=== PATIENT | female | born 1955 | race American Indian/Alaskan Native ===

== ENCOUNTER 2017-03-05 06:09 | Inpatient (IN) | payer SELFPAY ==
[2017-03-05 07:24] LABS: Hematocrit 33.2 % (30.3-42.9); Hemoglobin 10.4 gm/dl (10.1-14.3); Mean Corpuscular HGB Conc 32 % (30-34); Mean Corpuscular Volume 75 fl (79-97); Platelet Count 478 K/mm3 (140-440); Red Blood Count 4.42 M/mm3 (3.65-5.03); Red Cell Distribution Width 14.2 % (13.2-15.2)
[2017-03-05 07:25] LABS: Mean Corpuscular Hemoglobin 24 pg (28-32); White Blood Count 21.3 K/mm3 (4.5-11.0)
[2017-03-05 07:44] LABS: Albumin 3.2 g/dL (3.9-5); Albumin/Globulin Ratio 0.8 %; BUN/Creatinine Ratio 18.33; Bilirubin,Total 0.4 mg/dL (0.1-1.2); Calcium 8.9 mg/dL (8.4-10.2); Chloride 96.2 mmol/L (98-107); Potassium 4.1 mmol/L (3.6-5.0); Total Protein 7.1 g/dL (6.3-8.2)
[2017-03-05] MEDS ORDERED: NACL ONE (07:50)
[2017-03-05] MEDS ORDERED: ZOFRAN ONE ×2 (08:00→10:50)
[2017-03-05] MEDS ORDERED: MORPHINE ONE (08:01)
[2017-03-05] MEDS ORDERED: MORPHINE IV ONE (08:03)
--- NOTE | 2017-03-05 08:10 | Emergency Department Report ---
HPI - General Chief Complaint: Abdominal Pain Time Seen by Provider: 03/05/17 07:32 - HPI HPI: This is a 62-year-old Afro-[place]ien female presents to the emergency department with complaint of abdominal pain and possible wound infection. The patient was at [facility] in the middle of January and was found to have a bowel obstruction. They went in to do surgery and also found her to have significant adhesions and some other complications and the patient had some level of a intestinal resection. The surgery was done sometime around the and the patient was discharged home yesterday with a drain in place and instructions to replace her abdominal packing. However the patient has been having increased abdominal pain even prior to discharge and is currently living in a motel with her daughter and grandchildren and does not appear capable of taking care of this wound. She has a open wound to the anterior abdomen and it has started to leak malodorous discharge. The patient also says that she has been feeling as if she had a fever. She otherwise has a history of hypertension. She has a previous surgical history of cholecystectomy and intestinal surgery 30 years ago. She does not currently have a primary care doctor. The patient has a 40- pack-year history of smoking and stopped about 3 weeks ago, when she went into the hospital. ED Past Medical Hx - Past Medical History Previous Medical History?: Yes Hx Hypertension: Yes - Surgical History Past Surgical History?: Yes Additional Surgical History: GB, abdominal sx x2 - Social History Smoking Status: Former Smoker Substance Use Type: None - Medications Home Medications: Home Medications Medication Instructions Recorded Confirmed Last Taken Type Ibuprofen/Diphenhydramine Cit [Eql 1 each PO QHS 03/05/17 03/05/17 Unknown History Ibuprofen Pm Caplet] ED Review of Systems ROS: Stated complaint: ABD PAIN Other details as noted in HPI Comment: All other systems reviewed and negative Constitutional: chills, fever Eyes: denies: eye pain, eye discharge, vision change ENT: denies: ear pain, throat pain Respiratory: cough. denies: shortness of breath, wheezing Cardiovascular: denies: chest pain, palpitations Gastrointestinal: abdominal pain, nausea. denies: vomiting Genitourinary: denies: urgency, dysuria, discharge Musculoskeletal: denies: back pain, joint swelling, arthralgia Skin: denies: rash, lesions Neurological: denies: headache, weakness, paresthesias Physical Exam - Physical Exam Vital Signs: Vital Signs 03/05/17 06:29 Temperature 97.4 F L Pulse Rate 74 Respiratory 18 Rate Blood Pressure 159/79 O2 Sat by Pulse 95 Oximetry Physical Exam: GENERAL: The patient is well-developed well-nourished. HEENT: Normocephalic. Atraumatic. Extraocular motions are intact. Patient has moist mucous membranes. Pupils equal reactive to light bilaterally. NECK: Supple. Trachea is midline. CHEST/LUNGS: Coarse breath sounds at the chest. A productive any cough heard during examination. There is no respiratory distress noted. HEART/CARDIOVASCULAR: Regular. There is no tachycardia. There is no gallop rub or murmur. ABDOMEN: Abdomen is soft. There is generalized tenderness to palpation of the abdomen. Patient has a midline incisional wound that starts just above the pelvis and goes to around the umbilicus. It is relatively deep into the subcutaneous tissue. There is a drain with some purulent bloody appearing secretions inside. There is some malodorous yellowish white discharge seen coming from the center of the wound. There is no surrounding erythema. There is no abdominal distention. SKIN: Patient has a midline abdominal incisional wound that starts just above the pelvis and goes to around the umbilicus. It is relatively deep into the subcutaneous tissue. There is a drain with some purulent bloody appearing secretions inside. There is some malodorous yellowish white discharge seen coming from the center of the wound. There is no surrounding erythema. Skin is warm and dry. NEURO: The patient is awake, alert, and oriented. The patient is cooperative. The patient has no focal neurologic deficits. The patient has normal speech. MUSCULOSKELETAL: There is no tenderness or deformity. There is no limitation range of motion. There is no evidence of acute injury. ED Course Vital Signs 03/05/17 06:29 Temperature 97.4 F L Pulse Rate 74 Respiratory 18 Rate Blood Pressure 159/79 O2 Sat by Pulse 95 Oximetry ED Medical Decision Making - Lab Data Result diagrams: 03/05/17 07:00 03/05/17 07:00 - Radiology Data Radiology results: report reviewed, image reviewed interpreted by me: Chest x-ray does not show any pleural effusion, pneumonia or any acute process. CT SCAN OF THE ABDOMEN AND PELVIS WITH CONTRAST: HISTORY: Increasing abdominal pain, abdominal surgery 7 days ago. TECHNIQUE: Helical CT in 1.25mm intervals following IV contrast. Sagittal and coronal reconstructions. FINDINGS: No relative comparison at this facility. The liver is normal size and contour. Minimal fatty infiltration is suspected. No suspicious liver mass. 1 cm cyst is noted in the superior right hepatic lobe. Cholecystectomy has been performed. No biliary dilatation is appreciated. The pancreas is unremarkable. The spleen is normal size. 3 cm splenic hemangiomas noted anteriorly. The kidneys are normal in size and position with no evidence of hydronephrosis or mass. A right ureteral stent is in place. 1.5 cm low density nodule in the right adrenal gland probably represents an adrenal adenoma. The left adrenal gland is normal. A surgical drain is noted along the anterior abdominal wall terminating in the anterior pelvis. There is no evidence for adjacent fluid collection. The bowel loops are fluid-filled but normal caliber. There is no convincing obstruction or pneumatosis. A postoperative ileus is suggested. The appendix is not confidently identified. There is nonspecific óscar edema in the mesentery which is probably related to recent surgery. There is no evidence of peritoneal air or fluid. There is no evidence of any abnormal masses or fluid collections within the pelvis. No adenopathy is identified. The bladder is normal. Small calcified uterine fibroid is noted in the uterine fundus. The adnexa are within normal limits. There is a small amount of gas in the anterior abdominal incision but no defined abscess. IMPRESSION: Recent abdominal surgery changes are noted. No acute inflammatory process or abscess is appreciated. A postoperative ileus is suspected. - Medical Decision Making 62-year-old female presents emergency Department with some abdominal pain, probable soft tissue infection from previous surgical incision for intestinal resection at another hospital. While the patient does not have a current fever she does present with a leukocytosis of almost 21,000. A CT of the abdomen and pelvis with IV contrast was done that did not show any obvious abscess or any other acute process. However there is visible pus coming out of the incision and the patient has significant discomfort despite multiple pain medications given. She will be admitted to hospital for IV antibiotics, pain control and further evaluation. She's been accepted for admission by the hospitalist, Dr. Hightower. - Differential Diagnosis colitis, diverticulitis, cellulitis, subcutaneous abscess Critical Care Time: No Critical care attestation.: If time is entered above; I have spent that time in minutes in the direct care of this critically ill patient, excluding procedure time. ED Disposition Clinical Impression: Postoperative ileus Post-operative complication Qualifiers: Surgical complication system/body Area: subcutaneous tissue Surgical complication type: unspecified Abdominal pain Qualifiers: Abdominal location: generalized Qualified Code(s): R10.84 - Generalized abdominal pain UTI (urinary tract infection) Qualifiers: Urinary tract infection type: acute cystitis Hematuria presence: with hematuria Qualified Code(s): N30.01 - Acute cystitis with hematuria Leukocytosis Qualifiers: Leukocytosis type: unspecified Qualified Code(s): D72.829 - Elevated white blood cell count, unspecified Hypertension Qualifiers: Hypertension type: essential hypertension Qualified Code(s): I10 - Essential ( primary) hypertension Incisional infection Qualifiers: Encounter type: initial encounter Qualified Code(s): T81.4XXA - Infection following a procedure, initial encounter Disposition: OP ADMITTED IP TO THIS HOSP Is pt being admited?: Yes Condition: Fair Time of Disposition: 11:35
[2017-03-05] MEDS ORDERED: ZOFRAN IV ONE ×2 (08:36→10:56)
[2017-03-05] MEDS ORDERED: VANCOMYCIN/NS 1 GM/250 ML 1 GM/250 ML BAG IV ONE (09:09)
[2017-03-05] MEDS ORDERED: ZOSYN/NS 4.5GM/100ML 4.5 GM/100 ML VIAL IV ONE (09:10)
[2017-03-05] MEDS ORDERED: DILAUDID IV ONE (09:33)
--- NOTE | 2017-03-05 09:42 | XRay Report ---
AP CHEST: HISTORY: Cough AP view of the chest demonstrates a normal mediastinal and cardiac contour with clear lungs and normal bony and soft tissue structures. IMPRESSION: Unremarkable AP chest.
[2017-03-05] MEDS ORDERED: DUONEB 0.5 MG-3 MG/3 ML SOLN IH ONE (09:45)
--- NOTE | 2017-03-05 09:47 | Cat Scan Report ---
CT SCAN OF THE ABDOMEN AND PELVIS WITH CONTRAST: HISTORY: Increasing abdominal pain, abdominal surgery 7 days ago. TECHNIQUE: Helical CT in 1.25mm intervals following IV contrast. Sagittal and coronal reconstructions. FINDINGS: No relative comparison at this facility. The liver is normal size and contour. Minimal fatty infiltration is suspected. No suspicious liver mass. 1 cm cyst is noted in the superior right hepatic lobe. Cholecystectomy has been performed. No biliary dilatation is appreciated. The pancreas is unremarkable. The spleen is normal size. 3 cm splenic hemangiomas noted anteriorly. The kidneys are normal in size and position with no evidence of hydronephrosis or mass. A right ureteral stent is in place. 1.5 cm low density nodule in the right adrenal gland probably represents an adrenal adenoma. The left adrenal gland is normal. A surgical drain is noted along the anterior abdominal wall terminating in the anterior pelvis. There is no evidence for adjacent fluid collection. The bowel loops are fluid-filled but normal caliber. There is no convincing obstruction or pneumatosis. A postoperative ileus is suggested. The appendix is not confidently identified. There is nonspecific óscar edema in the mesentery which is probably related to recent surgery. There is no evidence of peritoneal air or fluid. There is no evidence of any abnormal masses or fluid collections within the pelvis. No adenopathy is identified. The bladder is normal. Small calcified uterine fibroid is noted in the uterine fundus. The adnexa are within normal limits. There is a small amount of gas in the anterior abdominal incision but no defined abscess. IMPRESSION: Recent abdominal surgery changes are noted. No acute inflammatory process or abscess is appreciated. A postoperative ileus is suspected.
[2017-03-05 10:04] LABS: Bacteria,Urine 1+ /HPF (Negative); Bilirubin,Urine NEG (Negative); Blood,Urine LG (Negative); Ketones,Urine TR mg/dL (Negative); Leukocyte Esterase,Urine MOD (Negative); Nitrite,Urine NEG (Negative); Urobilinogen,Urine < 2.0 mg/dL (<2.0)
[2017-03-05 11:21] LABS: Basophils % (Manual) 0 % (0.0-1.8); Blastocytes % (Manual) 0 %; Eosinophils % (Manual) 0.5 % (0.0-4.3); Total Cells Counted Percent 6.5
[2017-03-05 11:22] LABS: Anisocytosis 1+; Diff Status Complete; Hypochromasia 1+; Platelet Estimate Consistent w Auto
--- NOTE | 2017-03-05 14:37 | Event Note ---
Date: 03/05/17 See H/p in reports Abdominal wall dehiscence Hx of intestinal obstruction- S/p surgery HTN
[2017-03-05] MEDS ORDERED: TYLENOL PO PRN (15:00)
[2017-03-05] MEDS: D5NS 1,000 ML IV SCH (15:00)
[2017-03-05] MEDS ORDERED: MILK OF MAGNESIA PO PRN (15:00)
[2017-03-05] MEDS ORDERED: VANCOMYCIN PHARMACY TO DOSE IV SCH (15:00)
[2017-03-05] MEDS ORDERED: DULCOLAX PR PRN (15:00)
[2017-03-05] MEDS ORDERED: DILAUDID IV PRN (15:00)
[2017-03-05] MEDS ORDERED: ZOFRAN IV PRN (15:00)
[2017-03-05] MEDS: HEPARIN SUB-Q SCH ×2 (15:01→22:38)
[2017-03-05] MEDS ORDERED: MORPHINE IV PRN (16:25)
[2017-03-05] MEDS: ZOSYN/NS 4.5GM/100ML 4.5 GM/100 ML VIAL IV SCH ×2 (17:38→22:37)
[2017-03-05] MEDS: PEPCID IV SCH ×2 (17:51→22:38)
--- NOTE | 2017-03-05 18:48 | History and Physical Report ---
History of Present Illness Date of admission: 03/05/17 11:36 Chief complaint: abd pain-recently post op Medications and Allergies Allergies Allergy/AdvReac Type Severity Reaction Status Date / Time No Known Allergies Allergy Unverified 03/05/17 06:52 Home Medications Medication Instructions Recorded Confirmed Last Taken Type Ibuprofen/Diphenhydramine Cit [Eql 1 each PO QHS 03/05/17 03/05/17 Unknown History Ibuprofen Pm Caplet] traMADol [Ultram] 50 mg PO Q8H PRN #10 tablet 03/07/17 Unknown Rx Active Meds: Active Medications Acetaminophen (Tylenol) 650 mg PO Q4H PRN PRN Reason: Pain MILD(1-3)/Fever >100.5/[facility] Bisacodyl (Dulcolax) [address] QDAY PRN PRN Reason: Constipation unrelieved by [facility] [place] Diphenoxylate HCl/Atropine (Lomotil) 1 tab PO Q6H PRN PRN Reason: Diarrhea Famotidine (Pepcid) 20 mg IV BID COUNT INCLUDES THE [facility] Last Admin: 03/05/17 17:51 Dose: 20 mg Heparin Sodium (Porcine) (Heparin) 5,000 unit SUB-Q Q8HR COUNT INCLUDES THE [facility] Last Admin: 03/05/17 15:01 Dose: 5,000 unit Dextrose/Sodium Chloride (D5ns) 1,000 mls @ 75 mls/hr IV DIRECT COUNT INCLUDES THE [facility] Last Admin: 03/05/17 15:00 Dose: 75 mls/hr Piperacillin Sod/Tazobactam Sod (Zosyn/Ns 4.5gm/100ml) 4.5 gm in 100 mls @ 200 mls/hr IV Q8HR COUNT INCLUDES THE [facility] PRN Reason: Protocol Last Admin: 03/05/17 17:38 Dose: 200 mls/hr Vancomycin HCl (Vancomycin/Ns 1 Gm/250 Ml) 1 gm in 250 mls @ 166.667 mls/hr IV Q24H COUNT INCLUDES THE [facility] Magnesium Hydroxide (Milk Of Magnesia) 30 ml PO Q4H PRN PRN Reason: Constipation Morphine Sulfate (Morphine) 4 mg IV Q4H PRN PRN Reason: Pain , Severe (7-10) Last Admin: 03/05/17 17:32 Dose: 4 mg Ondansetron HCl (Zofran) 4 mg IV Q3H PRN PRN Reason: N/V unrelieved by Reglan Vancomycin HCl (Vancomycin Pharmacy To Dose) 1 each IV PKCONSULT DAREK PRN Reason: Protocol Exam Vital Signs Temp Pulse Resp BP Pulse Ox 97.4 F L 74 18 159/79 95 03/05/17 06:29 03/05/17 06:29 03/05/17 06:29 03/05/17 06:29 03/05/17 06:29 Results - Labs 03/07/17 07:04 03/07/17 07:04
--- NOTE | 2017-03-05 19:00 | Consultation ---
History of Present Illness Consult date: 03/05/17 Reason for consult: abdominal pain Chief complaint: abd pain - History of present illness History of present illness: 62 year old female 8 days s/p expl lap with small bowel resection, incidental right ureteral injury(recognized and repaired), uneventful recovery, wound packed open with retention sutures, TAJ drain in pelvis near ureteral repair, Pt had CT scan of abd pelvis prior to discharge which showed no leak or abcess. Pt sent home with wound being packed by family, presented to ER for evaluation of abd pain. I spoke with patient's surgeon Enrique Marina MD at [facility].WBC at 20k, afebrile, hemodyn stable, CT here with iv contrast , no oral contrast, no abcess, normal post surgical changes. Wound appears clean , fascia intact. Past History Past Medical History: hypertension Past Surgical History: cholecystectomy, bowel surgery (prev small bowel resection 30 years ago) Social history: lives with family, smoking (quit smoking? three weeks ago, heavy smoker.) Medications and Allergies Allergies Allergy/AdvReac Type Severity Reaction Status Date / Time No Known Allergies Allergy Unverified 03/05/17 06:52 Home Medications Medication Instructions Recorded Confirmed Last Taken Type Ibuprofen/Diphenhydramine Cit [Eql 1 each PO QHS 03/05/17 03/05/17 Unknown History Ibuprofen Pm Caplet] Active Meds: Active Medications Acetaminophen (Tylenol) 650 mg PO Q4H PRN PRN Reason: Pain MILD(1-3)/Fever >100.5/[place] Bisacodyl (Dulcolax) 10 mg ID QDAY PRN PRN Reason: Constipation unrelieved by MOM Diphenoxylate HCl/Atropine (Lomotil) 1 tab PO Q6H PRN PRN Reason: Diarrhea Famotidine (Pepcid) 20 mg IV BID [facility] Last Admin: 03/05/17 17:51 Dose: 20 mg Heparin Sodium (Porcine) (Heparin) 5,000 unit SUB-Q Q8HR DAREK Last Admin: 03/05/17 15:01 Dose: 5,000 unit Dextrose/Sodium Chloride (D5ns) 1,000 mls @ 75 mls/hr IV DIRECT DAREK Last Admin: 03/05/17 15:00 Dose: 75 mls/hr Piperacillin Sod/Tazobactam Sod (Zosyn/Ns 4.5gm/100ml) 4.5 gm in 100 mls @ 200 mls/hr IV Q8HR DAREK PRN Reason: Protocol Last Admin: 03/05/17 17:38 Dose: 200 mls/hr Vancomycin HCl (Vancomycin/Ns 1 Gm/250 Ml) 1 gm in 250 mls @ 166.667 mls/hr IV Q24H [facility] Magnesium Hydroxide (Milk Of Magnesia) 30 ml PO Q4H PRN PRN Reason: Constipation Morphine Sulfate (Morphine) 4 mg IV Q4H PRN PRN Reason: Pain , Severe (7-10) Last Admin: 03/05/17 17:32 Dose: 4 mg Ondansetron HCl (Zofran) 4 mg IV Q3H PRN PRN Reason: N/V unrelieved by [facility] Vancomycin HCl (Vancomycin Pharmacy To Dose) 1 each IV PKCONSULT DAREK PRN Reason: Protocol Review of Systems - Constitutional other (abd pain) Exam Vital Signs Temp Pulse Resp BP Pulse Ox 97.4 F L 74 18 159/79 95 03/05/17 06:29 03/05/17 06:29 03/05/17 06:29 03/05/17 06:29 03/05/17 06:29 - General physical appearance Positive: no distress - Eyes Positive: PERRL, normal occular movement - ENT Positive: normal pinna, normal nares, normal mucosa, no hearing loss, no congestion - Neck Positive: no masses, no bruits, trachea midline, no venous distension - Respiratory Positive: normal expansion, normal respiratory effort, clear to auscultation - Cardiovascular Rhythm: regular Heart Sounds: Present: S1 & S2. Absent: rub, click - Extremities Extremities: no ischemia Peripheral Pulses: within normal limits - Breasts Breasts: normal - Abdomen Abdomen: Present: soft, bowel sounds normal (open wound, retentions intact,TAJ in place with minimal serous drainage) Hernia: none - Neurologic Neurologic: alert and oriented to time, place and person, motor strength and sensation are grossly intact - Psychiatric Psychiatric: appropriate mood/affect, intact judgment & insight Results - Labs 03/05/17 07:00 03/05/17 07:00 Assessment and Plan Recent surgery, incisional pain, somewhat complicated case Increased WBC post surgical? no evidence of wound infection or abcess Adv diet as tolerated, oral pain meds, instruct on wound care Pt had follow up appt this week with Dr. Marina-I spoke with him by phone, he even called the patient just prior to me seeing patient!
[2017-03-05] MEDS: PERCOCET 5/325 PO PRN (20:47)
[2017-03-06] MEDS: MORPHINE IV PRN ×3 (01:56→11:58)
--- NOTE | 2017-03-06 03:23 | History and Physical Report ---
CHIEF COMPLAINT: Open abdominal wound with infection. HISTORY OF PRESENT ILLNESS: A 62-year-old female, status post exploratory laparoscopic repair with small bowel resection, incidental right ureteral injury, which was recognized and repaired, uneventful recovery, wound packed with retention sutures. TAJ drain and pelvis near ureteral repair. The patient had a CAT scan of the abdomen and pelvis. Prior to discharge, it showed no leak or abscess. The patient sent home with wound being packed by family, now presents to the ER for evaluation of abdominal pain. The patient is afebrile. Wound appears clean and fascia intact. No fever, no chills. No shortness of breath. PAST MEDICAL HISTORY: Significant for hypertension. PAST SURGICAL HISTORY: Significant for cholecystectomy, bowel surgery, previous small bowel resection 30 years ago. SOCIAL HISTORY: Lives with ____ family, quit smoking about 3 weeks ago, heavy smoker. ALLERGIES: None. CURRENT MEDICATIONS: Ibuprofen with diphenhydramine. REVIEW OF SYSTEMS: Significant for abdominal pain and open abdominal wound secondary to surgery for small bowel resection secondary to obstruction. CONSTITUTIONAL: No weight loss, no weight gain, no fever, no chills. HEENT: No sore throat, no postnasal drip. CARDIOVASCULAR AND RESPIRATORY SYSTEM: No shortness of breath, no chest pain, no palpitations, no wheezing. GASTROINTESTINAL: As mentioned, abdominal wound, surgical wound opened at 2 sites proximally and distally. GENITOURINARY: No dysuria. Has a TAJ drain in the pelvis near ureteral repair. MUSCULOSKELETAL: No joint pains, no muscle pains. CENTRAL NERVOUS SYSTEM: No syncope, no seizures. SKIN: No rashes. PSYCHIATRIC: No depression, no anxiety. HEMATOLOGIC/LYMPHATIC: No lymphedema. No easy bruising. A 14-point review of systems was done. PHYSICAL EXAMINATION: GENERAL: Elderly female, cooperative during examination. VITAL SIGNS: Temperature is 97.4, pulse is 74, respirations are 18. HEENT: Unremarkable. Pupils equal and reactive. NECK: Supple, no lymphadenopathy, no thyromegaly. LUNGS: Clear to auscultation and percussion. Good air entry. CARDIOVASCULAR SYSTEM: S1, S2 heard. No gallop, no murmur, no rub. Apical impulse in left fifth intercostal space and midclavicular line. ABDOMEN: Open wound with retention sutures intact. TAJ in place with minimal serous drainage. Wound appears clean. No pus, no drainage. Bowel sounds are normal. No tenderness. CENTRAL NERVOUS SYSTEM: Alert and oriented x 4, nonfocal exam. PSYCHIATRIC: Appropriate mood and intact judgment. SKIN: As mentioned, 2 open wounds. One in the upper abdomen and one in the lower abdomen. Wounds appear clean. LABORATORY DATA: Significant for white count of 21,300; H and H is 10.4 and 33.2; BUN and creatinine is 22 and 1.2. ASSESSMENT AND PLAN: 1. Abdominal wounds secondary to surgery. Incisional wounds. No evidence of wound infection or abscess. We will start empiric antibiotics. Increased WBC secondary to post-surgery. We will observe for 24-48 hours and follow up possible discharge. Dr. Marina wanted to see her today, but the patient did not go there because of postoperative complications. The patient was counseled about the surgical course and the options are available to her. The patient has to follow up with Dr. Marina. IV Zosyn and IV vancomycin started. 2. Hypertension, under control. 3. Chronic pain. Initially was on Dilaudid, but as per Surgery, the patient changed to morphine 2 mg q. 4 hours p.r.n. for pain. DIET: Clear liquids for now. Advance diet tomorrow. Discussed with Dr. Schroeder extensively. The patient to be admitted for 24-48 hours. There are signs of active infection. The wound healed by secondary intention and it will take 6-8 weeks. The patient to follow with her surgeon on a regular basis. The patient counseled. The patient is agreeable. We will discuss with the hospitalist team tomorrow. JOB# [id number] CALE/SAMANTHA
[2017-03-06] MEDS: ZOSYN/NS 4.5GM/100ML 4.5 GM/100 ML VIAL IV SCH ×3 (06:06→22:00)
[2017-03-06] MEDS: HEPARIN SUB-Q SCH ×3 (06:07→22:00)
[2017-03-06 06:36] LABS: Basophils % (Auto) 0.8 % (0.0-1.8); Eosinophils % (Auto) 0.6 % (0.0-4.3); Hematocrit 27.4 % (30.3-42.9); Hemoglobin 8.6 gm/dl (10.1-14.3); Mean Corpuscular HGB Conc 31 % (30-34); Mean Corpuscular Volume 75 fl (79-97); Platelet Count 513 K/mm3 (140-440); Red Blood Count 3.63 M/mm3 (3.65-5.03); Red Cell Distribution Width 14.3 % (13.2-15.2); White Blood Count 17.9 K/mm3 (4.5-11.0)
[2017-03-06 06:39] LABS: Mean Corpuscular Hemoglobin 24 pg (28-32)
[2017-03-06 06:52] LABS: Alanine Aminotransferase 14 units/L (7-56); Albumin 2.6 g/dL (3.9-5); Albumin/Globulin Ratio 0.8 %; Alkaline Phosphatase 150 units/L (35-129); Anion Gap 20 mmol/L; BUN/Creatinine Ratio 12.72; Blood Urea Nitrogen 14 mg/dL (7-17); Calcium 8.1 mg/dL (8.4-10.2); Carbon Dioxide 19 mmol/L (22-30); Chloride 103.7 mmol/L (98-107); Glucose 124 mg/dL (65-100); Potassium 3.7 mmol/L (3.6-5.0); Sodium 139 mmol/L (137-145); Total Protein 5.7 g/dL (6.3-8.2)
--- NOTE | 2017-03-06 07:56 | Progress Note ---
Assessment and Plan Assessment and plan: Patient is a 62 year old female with hx of Exp Lap with small bowel resection and incidental right ureter injury which was recognized and repaired with uneventful recovery with no noted leak or abscess 8 days ago, she has TAJ in the plevis near the reapir and wound packing with retention sutures. She presented with abdominal pain and in the ER noted to have Leukocytosis of 20,000 With no associated Fever, and on CT abdomen with IV constrast and not oral contrast did not demonstrate any abscess. * Abdominal pain * SIRS w/Leukocytosis- secondary to recent surgical intervention * s/p Exp Lap with small bowel resection and Repair of right ureter injury * HTN * CHRONIC PAIN * Ileus * Anemia- Likely of chronic disease, PLAN * Leukocytosis improving, likely post op, no evidence of wound infection or abcess. patient remains afebrile, continue to monitor * precipitous drop in hgb, likely due to hemodliuation, will monitor * Culture reviewed and no growth * Advance diet as tolerated * continue pain control and abx, will review med rec * Surgical input noted * Discharge IN 24 HRS If remains stable * Wound care consult while in house * Follow up WITH DR. Marina NEXT WEEK at [facility]. History Interval history: Patient seen and examined, in no acute distress. still with abdominal pain, rates it a 6/10 in intensity. No other nursing report of adverse event EXCEPT DIARRHEA. PATIENT STATES SHE RECEIVED ENEMA on discharge from hospitalization Hospitalist Physical - Physical exam Narrative exam: VITAL SIGNS: Reviewed. GENERAL: The patient appeared well nourished and normally developed, obese. Vital signs as documented. HEAD: No signs of head trauma. EYES: Pupils are equal. Extraocular motions intact. EARS: Hearing grossly intact. MOUTH: Oropharynx is normal. NECK: No adenopathy, no JVD. CHEST: Chest with clear breath sounds bilaterally. No wheezes, rales, or rhonchi. CARDIAC: Regular rate and rhythm. S1 and S2, without murmurs, gallops, or rubs. VASCULAR: No Edema. Peripheral pulses normal and equal in all extremities. ABDOMEN: Soft, tender,. TAJ drain in place, surgical packing in place. No sign of distention. No rebound or guarding, and no masses palpated. Bowel Sounds normal. MUSCULOSKELETAL: Good range of motion of all major joints. Extremities without clubbing, cyanosis or edema. NEUROLOGIC EXAM: Alert and oriented x 3. No focal sensory or strength deficits. Speech normal. Follows commands. PSYCHIATRIC: Mood normal. SKIN: Abdominal dressing in place. - Constitutional Vitals: Temp Pulse Resp BP Pulse Ox 98.4 F 106 H 18 115/56 95 03/06/17 00:00 03/06/17 00:00 03/06/17 02:26 03/06/17 00:00 03/06/17 00:00 Results - Labs CBC & Chem 7: 03/06/17 06:04 03/06/17 06:04 Labs: Laboratory Last Values WBC 17.9 K/mm3 (4.5-11.0) H 03/06/17 06:04 RBC 3.63 M/mm3 (3.65-5.03) L 03/06/17 06:04 Hgb 8.6 gm/dl (10.1-14.3) L 03/06/17 06:04 Hct 27.4 % (30.3-42.9) L 03/06/17 06:04 MCV 75 fl (79-97) L 03/06/17 06:04 MCH 24 pg (28-32) L 03/06/17 06:04 MCHC 31 % (30-34) 03/06/17 06:04 RDW 14.3 % (13.2-15.2) 03/06/17 06:04 Plt Count 513 K/mm3 (140-440) H 03/06/17 06:04 Lymph % (Auto) 8.0 % (13.4-35.0) L 03/06/17 06:04 Long % (Auto) 10.0 % (0.0-7.3) H 03/06/17 06:04 Eos % (Auto) 0.6 % (0.0-4.3) 03/06/17 06:04 Baso % (Auto) 0.8 % (0.0-1.8) 03/06/17 06:04 Lymph # 1.4 K/mm3 (1.2-5.4) 03/06/17 06:04 Long # 1.8 K/mm3 (0.0-0.8) H 03/06/17 06:04 Eos # 0.1 K/mm3 (0.0-0.4) 03/06/17 06:04 Baso # 0.1 K/mm3 (0.0-0.1) 03/06/17 06:04 Add Manual Diff Complete 03/05/17 07:00 Total Counted 200 03/05/17 07:00 Seg Neutrophils % 80.6 % (40.0-70.0) H 03/06/17 06:04 Seg Neuts % (Manual) 87.5 % (40.0-70.0) H 03/05/17 07:00 Band Neutrophils % 0 % 03/05/17 07:00 Lymphocytes % (Manual) 6.0 % (13.4-35.0) L 03/05/17 07:00 Reactive Lymphs % (Man) 0 % 03/05/17 07:00 Monocytes % (Manual) 6.0 % (0.0-7.3) 03/05/17 07:00 Eosinophils % (Manual) 0.5 % (0.0-4.3) 03/05/17 07:00 Basophils % (Manual) 0 % (0.0-1.8) 03/05/17 07:00 Metamyelocytes % 0 % 03/05/17 07:00 Myelocytes % 0 % 03/05/17 07:00 Promyelocytes % 0 % 03/05/17 07:00 Blast Cells % 0 % 03/05/17 07:00 Nucleated RBC % Not Reportable 03/05/17 07:00 Seg Neutrophils # 14.4 K/mm3 (1.8-7.7) H 03/06/17 06:04 Seg Neutrophils # Man 18.6 K/mm3 (1.8-7.7) H 03/05/17 07:00 Band Neutrophils # 0.0 K/mm3 03/05/17 07:00 Lymphocytes # (Manual) 1.3 K/mm3 (1.2-5.4) 03/05/17 07:00 Abs React Lymphs (Man) 0.0 K/mm3 03/05/17 07:00 Monocytes # (Manual) 1.3 K/mm3 (0.0-0.8) H 03/05/17 07:00 Eosinophils # (Manual) 0.1 K/mm3 (0.0-0.4) 03/05/17 07:00 Basophils # (Manual) 0.0 K/mm3 (0.0-0.1) 03/05/17 07:00 Metamyelocytes # 0.0 K/mm3 03/05/17 07:00 Myelocytes # 0.0 K/mm3 03/05/17 07:00 Promyelocytes # 0.0 K/mm3 03/05/17 07:00 Blast Cells # 0.0 K/mm3 03/05/17 07:00 WBC Morphology Not Reportable 03/05/17 07:00 Hypersegmented Neuts Not Reportable 03/05/17 07:00 Hyposegmented Neuts Not Reportable 03/05/17 07:00 Hypogranular Neuts Not Reportable 03/05/17 07:00 Smudge Cells Not Reportable 03/05/17 07:00 Toxic Granulation Not Reportable 03/05/17 07:00 Toxic Vacuolation Not Reportable 03/05/17 07:00 Dohle Bodies Not Reportable 03/05/17 07:00 Pelger-Huet Anomaly Not Reportable 03/05/17 07:00 Wilmer Rods Not Reportable 03/05/17 07:00 Platelet Estimate Consistent w auto 03/05/17 07:00 Clumped Platelets Not Reportable 03/05/17 07:00 Plt Clumps, EDTA Not Reportable 03/05/17 07:00 Large Platelets Not Reportable 03/05/17 07:00 Giant Platelets Not Reportable 03/05/17 07:00 Platelet Satelliting Not Reportable 03/05/17 07:00 Plt Morphology Comment Not Reportable 03/05/17 07:00 RBC Morphology Not Reportable 03/05/17 07:00 Dimorphic RBCs Not Reportable 03/05/17 07:00 Polychromasia Not Reportable 03/05/17 07:00 Hypochromasia 1+ 03/05/17 07:00 Poikilocytosis Not Reportable 03/05/17 07:00 Anisocytosis 1+ 03/05/17 07:00 Microcytosis Not Reportable 03/05/17 07:00 Macrocytosis Not Reportable 03/05/17 07:00 Spherocytes Not Reportable 03/05/17 07:00 Pappenheimer Bodies Not Reportable 03/05/17 07:00 Sickle Cells Not Reportable 03/05/17 07:00 Target Cells Not Reportable 03/05/17 07:00 Tear Drop Cells Not Reportable 03/05/17 07:00 Ovalocytes Not Reportable 03/05/17 07:00 Helmet Cells Not Reportable 03/05/17 07:00 [place] Bodies Not Reportable 03/05/17 07:00 [place] Rings Not Reportable 03/05/17 07:00 [place] Cells Not Reportable 03/05/17 07:00 Bite Cells Not Reportable 03/05/17 07:00 Crenated Cell Not Reportable 03/05/17 07:00 Elliptocytes Not Reportable 03/05/17 07:00 Acanthocytes (Spur) Not Reportable 03/05/17 07:00 Rouleaux Not Reportable 03/05/17 07:00 Hemoglobin C Crystals Not Reportable 03/05/17 07:00 Schistocytes Not Reportable 03/05/17 07:00 Malaria parasites Not Reportable 03/05/17 07:00 Issac Bodies Not Reportable 03/05/17 07:00 Hem Pathologist Commnt No 03/05/17 07:00 Sodium 139 mmol/L (137-145) 03/06/17 06:04 Potassium 3.7 mmol/L (3.6-5.0) 03/06/17 06:04 Chloride 103.7 mmol/L (98-107) 03/06/17 06:04 Carbon Dioxide 19 mmol/L (22-30) L 03/06/17 06:04 Anion Gap 20 mmol/L 03/06/17 06:04 BUN 14 mg/dL (7-17) 03/06/17 06:04 Creatinine 1.1 mg/dL (0.7-1.2) 03/06/17 06:04 Estimated GFR > 60 ml/min 03/06/17 06:04 BUN/Creatinine Ratio 12.72 % 03/06/17 06:04 Glucose 124 mg/dL (65-100) H 03/06/17 06:04 Lactic Acid 1.00 mmol/L (0.7-2.0) 03/05/17 09:17 Calcium 8.1 mg/dL (8.4-10.2) L 03/06/17 06:04 Total Bilirubin 0.30 mg/dL (0.1-1.2) 03/06/17 06:04 AST 19 units/L (5-40) 03/06/17 06:04 ALT 14 units/L (7-56) 03/06/17 06:04 Alkaline Phosphatase 150 units/L (35-129) H 03/06/17 06:04 Total Protein 5.7 g/dL (6.3-8.2) L 03/06/17 06:04 Albumin 2.6 g/dL (3.9-5) L 03/06/17 06:04 Albumin/Globulin Ratio 0.8 % 03/06/17 06:04 Lipase 86 units/L (13-60) H 03/05/17 07:00 Urine Color Yellow (Yellow) 03/05/17 09:41 Urine Turbidity Cloudy (Clear) 03/05/17 09:41 Urine pH 5.0 (5.0-7.0) 03/05/17 09:41 Ur Specific [place] 1.031 (1.003-1.030) H 03/05/17 09:41 Urine Protein 100 mg/dl mg/dL (Negative) 03/05/17 09:41 Urine Glucose (UA) Neg mg/dL (Negative) 03/05/17 09:41 Urine Ketones Tr mg/dL (Negative) 03/05/17 09:41 Urine Blood Lg (Negative) 03/05/17 09:41 Urine Nitrite Neg (Negative) 03/05/17 09:41 Urine Bilirubin Neg (Negative) 03/05/17 09:41 Urine Urobilinogen < 2.0 mg/dL (<2.0) 03/05/17 09:41 Ur Leukocyte Esterase Mod (Negative) 03/05/17 09:41 Urine WBC (Auto) 61.0 /HPF (0.0-6.0) H 03/05/17 09:41 Urine RBC (Auto) 97.0 /HPF (0.0-6.0) 03/05/17 09:41 Urine Bacteria (Auto) 1+ /HPF (Negative) 03/05/17 09:41 Urine Yeast (Budding) 1+ /HPF 03/05/17 09:41
[2017-03-06] MEDS: D5NS 1,000 ML IV SCH (08:26)
[2017-03-06] MEDS: LOMOTIL PO PRN (09:14)
[2017-03-06] MEDS: VANCOMYCIN/NS 1 GM/250 ML 1 GM/250 ML BAG IV SCH (09:14)
[2017-03-06] MEDS: PEPCID IV SCH ×2 (09:14→22:00)
[2017-03-06] MEDS: ATIVAN IV PRN ×2 (10:28→18:24)
--- NOTE | 2017-03-06 11:51 | Event Note ---
Date: 03/06/17 VSS Afebrile, wound clean, no abcess, WBC trending down, patient is tolerating regular diet, had BM this am in bed, I would recc d/cing iv narcotics, use po pain meds, resume Cipro (patient allready has meds) and discharge home and follow up this week with Dr. Enrique Marina at [facility], she missed her appt yesterday, I do not think patient is bleeding, decreased H and H is dilutional or lab error.
[2017-03-06] MEDS: DUONEB 0.5 MG-3 MG/3 ML SOLN IH SCH ×2 (18:00→23:54)
[2017-03-06] MEDS: PERCOCET 5/325 PO PRN (23:25)
[2017-03-07] MEDS: ATIVAN IV PRN (02:20)
[2017-03-07] MEDS: HEPARIN SUB-Q SCH (06:02)
[2017-03-07] MEDS: ZOSYN/NS 4.5GM/100ML 4.5 GM/100 ML VIAL IV SCH (06:02)
[2017-03-07] MEDS: D5NS 1,000 ML IV SCH (06:07)
[2017-03-07 07:32] LABS: Hematocrit 28.8 % (30.3-42.9); Hemoglobin 8.8 gm/dl (10.1-14.3); Mean Corpuscular HGB Conc 30 % (30-34); Mean Corpuscular Volume 78 fl (79-97); Platelet Count 605 K/mm3 (140-440); Red Blood Count 3.68 M/mm3 (3.65-5.03); Red Cell Distribution Width 14.7 % (13.2-15.2); White Blood Count 11.2 K/mm3 (4.5-11.0)
[2017-03-07 07:44] LABS: Alanine Aminotransferase 14 units/L (7-56); Albumin 2.2 g/dL (3.9-5); Albumin/Globulin Ratio 0.5 %; Alkaline Phosphatase 132 units/L (35-129); Anion Gap 19 mmol/L; Blood Urea Nitrogen 9 mg/dL (7-17); Calcium 8.4 mg/dL (8.4-10.2); Carbon Dioxide 19 mmol/L (22-30); Glucose 106 mg/dL (65-100); Potassium 3.5 mmol/L (3.6-5.0); Sodium 144 mmol/L (137-145); Total Protein 6.3 g/dL (6.3-8.2)
[2017-03-07 07:54] LABS: Mean Corpuscular Hemoglobin 24 pg (28-32)
--- NOTE | 2017-03-07 08:21 | Discharge Summary ---
Providers - Providers Date of Admission: 03/05/17 11:36 Date of discharge: 03/07/17 Attending physician: SIMEON JUNE MD 03/05/17 14:52 Consult to Physician [CONS] Routine Consulting Provider: JIMMY POSADAS Reason For Exam: ABDOMINAL WALL DEHISCENCE Place consult to:: DR. POSADAS Notified:: DR. POSADAS Phone number called:: [phone] Was contact made?: Yes If yes, spoke with:: DR. POSADAS Time called:: 15:46 Comment:: CONSULT COMPLETED - ANSHUL 03/06/17 07:56 Consult to Dietitian/Nutrition [CONS] Routine Physician Instructions: Reason For Exam: Reason for Consult: Malnutrition 03/06/17 10:39 Consult to Wound/ET Nurse [CONS] Routine Reason For Exam: wound eval Primary care physician: HIDES SOAKER Hospitalization Reason for admission: Abdominal pain. Condition: Stable Hospital course: laurel is a 62 year old female with hx of Exp Lap with small bowel resection and incidental right ureter injury which was recognized and repaired with uneventful recovery with no noted leak or abscess 8 days Prior to admission, she has TAJ in the plevis near the reapir and wound packing with retention sutures. She presented with abdominal pain and in the ER noted to have Leukocytosis of 20,000 With no associated Fever, and on CT abdomen with IV contrast and not oral contrast did not demonstrate any abscess. MINIMAL DROP IN HGB was noted but appears to be secondary to hemodilution and remained stable for 24 hrs with no evidence of bleed. Leukocytosis also improved and imaging studies as mentioned did not reveal any abscess or infection. TAJ drain continued to put out minimum fluids. She was seen by the surgeon here who discussed with her surgeon and she will follow up outpatient with Dr Enrique Marina at [facility]. Patient reported initially having diarrhea for which C. difficile study was sent. It actually appears that she does have 1 episode of soft stool with no actual diarrhea. Of note she received enemas post discharge from the hospital for surgical treatment. She understands she is to follow-up with Dr. Marina Discharge Diagnosis * Abdominal pain * SIRS w/Leukocytosis- secondary to recent surgical intervention * s/p Exp Lap with small bowel resection and Repair of right ureter injury * HTN * Precipitous drop in hgb * CHRONIC PAIN * Ileus * Anemia- Likely of chronic disease, * Morbid obesity Disposition: DC/TX HOME UNDER HOME HEALTH Time spent for discharge: 35 MINS Core Measure Documentation - Palliative Care Palliative Care/ Comfort Measures: Not Applicable - Core Measures Any of the following diagnoses?: none - VTE Discharge Requirements Deep Vein Thrombosis/Pulmonary Embolism Present on Admission: No Exam - Physical Exam Narrative exam: VITAL SIGNS: Reviewed. GENERAL: The patient appeared well nourished and normally developed, obese. Vital signs as documented. HEAD: No signs of head trauma. EYES: Pupils are equal. Extraocular motions intact. EARS: Hearing grossly intact. MOUTH: Oropharynx is normal. NECK: No adenopathy, no JVD. CHEST: Chest with clear breath sounds bilaterally. No wheezes, rales, or rhonchi. CARDIAC: Regular rate and rhythm. S1 and S2, without murmurs, gallops, or rubs. VASCULAR: No Edema. Peripheral pulses normal and equal in all extremities. ABDOMEN: Soft, tender,. TAJ drain in place, surgical packing in place. No sign of distention. No rebound or guarding, and no masses palpated. Bowel Sounds normal. MUSCULOSKELETAL: Good range of motion of all major joints. Extremities without clubbing, cyanosis or edema. NEUROLOGIC EXAM: Alert and oriented x 3. No focal sensory or strength deficits. Speech normal. Follows commands. PSYCHIATRIC: Mood normal. SKIN: Abdominal dressing in place. - Constitutional Vitals: Temp Pulse Resp BP Pulse Ox 98.9 F 88 18 150/70 94 03/07/17 00:00 03/07/17 00:00 03/07/17 00:25 03/07/17 00:00 03/07/17 00:00 Plan Activity: advance as tolerated, fall precautions Diet: per dietitian instruction Special Instructions: home health RN Additional Instructions: Follow with DR Enrique Marina. PATIENT TO CONTINUE ON CIPRO PRESCRIBED BY DR MARINA. PATIENT HAS AT HOME. Follow up with: PRIMARY CARE, [Primary Care Provider] - 3-5 Days Prescriptions: traMADol [Ultram] 50 mg PO Q8H PRN #10 tablet PRN Reason: Pain
--- NOTE | 2017-03-07 08:23 | Event Note ---
Date: 03/07/17 VSS AF WBC trending down, H and HCT stable,patient tolerating reg diet with normal bowel function, Recc discharge home with followup with Dr. Enrique Marina. Pt eli has prescriptions in her purse from previous discharge at [facility]/ Dr. Marina.
[2017-03-07 08:40] VITALS: BP 144/82
[2017-03-07] MEDS: DUONEB 0.5 MG-3 MG/3 ML SOLN IH SCH (08:56)
[2017-03-07] MEDS: PERCOCET 5/325 PO PRN ×2 (09:30→13:52)
[2017-03-07] MEDS: PEPCID IV SCH (09:30)
[2017-03-07] MEDS: VANCOMYCIN/NS 1 GM/250 ML 1 GM/250 ML BAG IV SCH (09:33)
--- NOTE | 2017-03-07 10:21 | Admit Criteria Form ---
Admission Criteria Documentation: INTESTINAL OBSTRUCTION;ILEUS, POSTOPERATIVE Clinical Indications for Inpatient Care (Place 'X' for any and all applicable criteria): Ongoing inpatient care may be indicated for postoperative ileus[A] with ANY ONE of the following (1)(5)(19): [ ]I. Mechanical bowel obstruction has not been ruled out (Also use Intestinal Obstruction care as appropriate) [ ]II. Investigation for contributing disorders (eg, pancreatitis, hypokalemia) not complete [ ]III. Patient unable to tolerate oral analgesia because of nausea or vomiting [ ]IV. Patient unable to tolerate liquid diet because of nausea or vomiting [X]V. Ileus caused by a precipitating complication (eg, infection, anastomotic leak) requiring inpatient treatment(2) Extended stay beyond goal length of stay for primary condition may be needed until ALL of the following are present(1)(4)(5): [ ]a) Underlying disorder (eg, pancreatitis, hypokalemia, infection) diagnosed and treated [ ]b) Patient comfortable on oral analgesia [ ]c) Patient tolerating liquid diet, or fluid and nutrition status manageable at lower level of care The original [employer] content created by [employer] has been revised. The portions of the content which have been revised are identified through the use of italic text or in bold, and [facility] has neither reviewed nor approved the modified material. All other unmodified content is copyright [employer]. Please see references footnoted in the original [employer] edition 2016 Admission Criteria Met: Yes
[2017-03-07] MEDS: LOMOTIL PO PRN (13:53)
== END 2017-03-07 14:33 | disposition home health service (06) | DRG 863 ==
LOC: ED 06:09 → 3A 11:36
PROVIDERS: ADMIT Internal Medicine; ATTEND Internal Medicine
DX: T81.4XXA Infection following a procedure, initial encounter (principal); K91.89 Other postprocedural complications and disorders of digestive system; N39.0 Urinary tract infection, site not specified; K91.3 Postprocedural intestinal obstruction; R65.10 Systemic inflammatory response syndrome (SIRS) of non-infectious origin without acute organ dysfunction; D72.829 Elevated white blood cell count, unspecified; I10 Essential (primary) hypertension; Z90.49 Acquired absence of other specified parts of digestive tract; F17.210 Nicotine dependence, cigarettes, uncomplicated; G89.29 Other chronic pain; D63.8 Anemia in other chronic diseases classified elsewhere; E66.01 Morbid (severe) obesity due to excess calories; Z68.37 Body mass index [BMI] 37.0-37.9, adult
CPT/HCPCS: 36415; 71010; 74177; 80053; 81001; 82140; 83690; 85007; 85025; 85027; 87040; 87076; 87086; 87116; 87186; 93005; 93010; 94640; 96365; 96366; 96375; 96376; J1170; J1644; J2060; J2270; J2405; J2543; J3370; J7042; Q9967

== ENCOUNTER 2017-03-30 18:19 | Inpatient (IN) | payer SELFPAY ==
[2017-03-30 19:23] LABS: Eosinophils % (Auto) 3.1 % (0.0-4.3)
[2017-03-30 19:32] LABS: Hematocrit 30.7 % (30.3-42.9); Hemoglobin 9.5 gm/dl (10.1-14.3); Mean Corpuscular HGB Conc 31 % (30-34); Mean Corpuscular Hemoglobin 24 pg (28-32); Mean Corpuscular Volume 76 fl (79-97); Platelet Count 456 K/mm3 (140-440); Red Blood Count 4.02 M/mm3 (3.65-5.03); Red Cell Distribution Width 16.6 % (13.2-15.2); White Blood Count 8.5 K/mm3 (4.5-11.0)
[2017-03-30 19:43] LABS: Alanine Aminotransferase 43 units/L (7-56); Albumin/Globulin Ratio 0.7 %; Alkaline Phosphatase 131 units/L (35-129); Anion Gap 20 mmol/L; Blood Urea Nitrogen 11 mg/dL (7-17); Calcium 8.9 mg/dL (8.4-10.2); Carbon Dioxide 22 mmol/L (22-30); Chloride 99.9 mmol/L (98-107); Glucose 97 mg/dL (65-100); Lipase 13 units/L (13-60); Potassium 3.2 mmol/L (3.6-5.0); Sodium 139 mmol/L (137-145); Total Protein 7.6 g/dL (6.3-8.2)
[2017-03-30] MEDS ORDERED: ZOFRAN IV ONE (21:00)
[2017-03-30] MEDS ORDERED: ZOFRAN IM ONE (21:05)
[2017-03-31] MEDS ORDERED: REGLAN IV ONE (01:00)
[2017-03-31] MEDS ORDERED: MORPHINE IV ONE (01:00)
[2017-03-31] MEDS ORDERED: NITRO-BID 2% TP ONE (01:01)
[2017-03-31] MEDS ORDERED: CATAPRES PO ONE (01:02)
--- NOTE | 2017-03-31 01:06 | Emergency Department Report ---
HPI - General Chief Complaint: Chest Pain Time Seen by Provider: 03/31/17 00:46 - HPI HPI: Room 3 The patient is a 62-year-old female presenting with a chief complaint of chest pain and chronic wound pain. The patient states today at approximately noon she developed substernal chest pain that was sharp in nature. The patient states she thought it was gas and then determined that it wasn't. The patient states she's had substernal heaviness has been intermittent and she currently gives a score of 9/10. Patient also complains of pain in her open abdominal wound from surgery in January. Patient does admit to nausea vomiting, shortness of breath and diaphoresis with her chest pain. The patient states her last stress test occurred approximately 40 years ago and she has never had a cardiac catheterization Location: [see above] Duration: Intermittent times one day Quality: Heaviness Severity: 9/10 Modifying factors: [see above] Context: [see above] Mode of transportation: Unknown ED Past Medical Hx - Past Medical History Hx Hypertension: Yes - Surgical History Hx Cholecystectomy: Yes Additional Surgical History: Surgery for small bowel obstruction - Family History Family history: no significant - Social History Smoking Status: Former Smoker (none 2 months) Substance Use Type: None (denies illicit drug use), Alcohol (occasional), Prescribed - Medications Home Medications: Home Medications Medication Instructions Recorded Confirmed Last Taken Type Ibuprofen/Diphenhydramine Cit [Eql 1 each PO QHS 03/05/17 03/05/17 Unknown History Ibuprofen Pm Caplet] traMADol [Ultram] 50 mg PO Q8H PRN #10 tablet 03/07/17 Unknown Rx ED Review of Systems ROS: Stated complaint: CHEST PAIN Other details as noted in HPI Comment: All other systems reviewed and negative Constitutional: denies: chills, fever Eyes: denies: eye pain, eye discharge, vision change ENT: denies: ear pain, throat pain Respiratory: shortness of breath Cardiovascular: chest pain Endocrine: no symptoms reported Gastrointestinal: nausea, vomiting Genitourinary: denies: urgency, dysuria, discharge Musculoskeletal: denies: back pain, joint swelling, arthralgia Skin: denies: rash, lesions Neurological: other (dizziness). denies: headache, weakness, paresthesias Psychiatric: denies: anxiety, depression Hematological/Lymphatic: denies: easy bleeding, easy bruising Physical Exam - Physical Exam Vital Signs: Vital Signs 03/30/17 18:41 Temperature 98.6 F Pulse Rate 105 H Respiratory 18 Rate Blood Pressure 236/102 O2 Sat by Pulse 100 Oximetry Physical Exam: GENERAL: The patient is well-developed well-nourished female lying on stretcher appearing to be in mild discomfort. [] HEENT: Normocephalic. Atraumatic. Extraocular motions are intact. Patient has moist mucous membranes. NECK: Supple. Trachea midline CHEST/LUNGS: Clear to auscultation. There is no respiratory distress noted. HEART/CARDIOVASCULAR: Regular. There is no tachycardia. There is no gallop rub or murmur. ABDOMEN: Abdomen is soft, with dressing in place. Dressing removed to reveal open wound packed with gauze. Healthy pink granulation tissue is present. Patient has normal bowel sounds. There is no abdominal distention. SKIN: There is no rash. There is no edema. There is no diaphoresis. NEURO: The patient is awake, alert, and oriented. The patient is cooperative. The patient has normal speech MUSCULOSKELETAL:There is no evidence of acute injury. ED Course Vital Signs 03/30/17 18:41 Temperature 98.6 F Pulse Rate 105 H Respiratory 18 Rate Blood Pressure 236/102 O2 Sat by Pulse 100 Oximetry ED Medical Decision Making - Lab Data Result diagrams: 03/30/17 19:04 03/30/17 19:04 Laboratory Tests 03/30/17 03/30/17 03/30/17 19:04 19:04 22:05 WBC 8.5 RBC 4.02 Hgb 9.5 L Hct 30.7 MCV 76 L MCH 24 L MCHC 31 RDW 16.6 H Plt Count 456 H Lymph % (Auto) 21.7 [place] % (Auto) 9.8 H Eos % (Auto) 3.1 Baso % (Auto) 1.0 Lymph # 1.9 [place] # 0.8 Eos # 0.3 Baso # 0.1 Seg Neutrophils % 64.4 Seg Neutrophils # 5.5 Sodium 139 Potassium 3.2 L Chloride 99.9 Carbon Dioxide 22 Anion Gap 20 BUN 11 Creatinine 1.1 Estimated GFR > 60 BUN/Creatinine Ratio 10.00 Glucose 97 Calcium 8.9 Total Bilirubin 0.30 AST 67 H ALT 43 Alkaline Phosphatase 131 H Troponin T < 0.010 < 0.010 Total Protein 7.6 Albumin 3.0 L Albumin/Globulin Ratio 0.7 Lipase 13 03/31/17 00:21 WBC RBC Hgb Hct MCV MCH MCHC RDW Plt Count Lymph % (Auto) [place] % (Auto) Eos % (Auto) Baso % (Auto) Lymph # [place] # Eos # Baso # Seg Neutrophils % Seg Neutrophils # Sodium Potassium Chloride Carbon Dioxide Anion Gap BUN Creatinine Estimated GFR BUN/Creatinine Ratio Glucose Calcium Total Bilirubin AST ALT Alkaline Phosphatase Troponin T < 0.010 Total Protein Albumin Albumin/Globulin Ratio Lipase - EKG Data -: EKG Interpreted by Me EKG shows normal: sinus rhythm Rate: normal - EKG Data When compared to previous EKG there are: changes noted Interpretation: nonspecific ST-T wave mathew (slight ST depressions in leads 2 and aVL when compared to previous EKG dated 03/05/2017) - Radiology Data Radiology results: image reviewed (chest x-ray) interpreted by me: Chest x-ray-no focal infiltrates, no pneumothorax. Normal aortic knob - Differential Diagnosis ACS, GERD, pericarditis, hypertensive urgency Critical care attestation.: If time is entered above; I have spent that time in minutes in the direct care of this critically ill patient, excluding procedure time. ED Disposition Clinical Impression: Hypertension, Chest pain Disposition: OP ADMIT IP TO THIS HOSP Is pt being admited?: Yes Does the pt Need Aspirin: Yes Condition: Fair Instructions: Chest Pain (ED), Hypertension (ED) Referrals: HARRIS GREGORY MD [Primary Care Provider] - 3-5 Days Time of Disposition: 01:45 (hospitalist paged)
[2017-03-31] MEDS ORDERED: ASPIRIN PO ONE (01:09)
[2017-03-31 02:21] LABS: Bacteria,Urine 2+ /HPF (Negative); Bilirubin,Urine NEG (Negative); Blood,Urine LG (Negative); Ketones,Urine TR mg/dL (Negative); Leukocyte Esterase,Urine LG (Negative); Mucus,Urine 1+ /HPF; Nitrite,Urine NEG (Negative); Urobilinogen,Urine < 2.0 mg/dL (<2.0)
[2017-03-31 02:22] LABS: RBC,Urine > 182.0 /HPF (0.0-6.0); WBC,Urine > 182.0 /HPF (0.0-6.0)
--- NOTE | 2017-03-31 02:39 | Admit Criteria Form ---
Admission Criteria Documentation: CHEST PAIN Clinical Indications for Admission to Inpatient Care (Place 'X' for any and all applicable criteria): Admission is indicated for chest pain and ANY ONE of the following(1)(2)(3)(4)(5 ): [ ]I. Angina with acute coronary syndrome (Also use Myocardial Infarction or Angina guideline) [ ]II. Hemodynamic instability [ ]III. Angina needing acute intervention as indicated by ALL of the following( 11)(12): [ ]a) Unstable angina is present as indicated by angina that is ANY ONE of the following: [ ]i) New onset [ ]ii) Nocturnal [ ]iii) Prolonged at rest [ ]iv) Progressive [ ]b) Angina warrants acute intervention as indicated by ANY ONE of the following: [ ]i) Recurrent angina (e.g, not responding as previously to treatment) [ ]ii) Angina at rest or with low-level activities despite initial medical therapy [ ]iii) New or presumably new ST-segment depression on ECG [ ]iv) Signs or symptoms of heart failure (eg, dyspnea, pulmonary edema) [ ]v) New or worsening mitral regurgitation [ ]vi) Hemodynamic instability [ ]vii) Dangerous arrhythmia (eg, sustained ventricular tachycardia) [ ]viii) History of percutaneous coronary intervention within 6 months [ ]ix) History of coronary artery bypass graft surgery [ ]x) LENORE risk score of 2 or greater[A] [ ]xi) History of Diabetes(14) [ ]xii) High-risk cardiac ischemia findings on noninvasive testing (e.g, echocardiogram, treadmill testing, nuclear scan) [ ]xiii) Chronic renal insufficiency (ie, estimated GFR less than 60 mL/min/1.732m) [ ]xiv) Left ventricular ejection fraction less than 40% [ ]IV. Evidence of W[place] (eg, cardiac biomarkers positive, ST-segment elevation on ECG) also use Myocardial Infarction Criteria Form. [ ]V. Pulmonary edema [ ]. Respiratory distress [ ]VII. Chest pain indicative of serious diagnosis other than coronary artery disease (eg, aortic dissection) [ ]VIII. Contraindications and/or Inappropriate clinical situations for Observational Care in patients with Chest Pain, when ANY ONE of the following is required: [ ]a) Patient with risk factor for pulmonary embolism, acute coronary syndrome and myocardial infarction (18) [ ]b) Patient with Pulmonary embolism require an average LOS of 4.3 days, therefore emergency department observation management is inappropriate 18,23 [ ]c) Painful condition/s in the elderly, have the highest rate of recidivism after emergency department observation management (10.8%) 20,21,22 [ ]d) Elevated cardiac biomarker requires intensive and exhaustive care (19) [ X]IX. General contraindications and/or Inappropriate clinical situations for Observational Care in patients with Chest Pain, when ANY ONE of the following is required: [ ]a) Prediction of prolongation of LOS based on ANY ONE of the following may be considered as a contraindication for observational care 2, 3, 4, 5, 6, 7, 8, 9, 10, 11 [ ]i) Age > 65 yrs. [ ]ii) Patient arriving by ambulance [ ]iii) Patient with high acuity [ ]iv) Patient requiring vital sign monitoring [ ]v) Patient on IV medication [X ]b) Systolic blood pressures 180mmHg 3,12 [ ]c) Patient with altered mental status including delirium and other alteration of consciousness, (3) [ ]d) Patient whose discharge disposition will be to a intermediate home or rehabilitation home should not be managed in Emergency Department Observation Unit. CMS rule requires 3 days hospital stay before such placement. 3,13 [ ]e) Patient with failure to thrive due to broad array of etiologies 3,16,17 [ ]f) Inability to ambulate 3,14 Extended stay beyond goal length of stay may be needed for (1)(28): [ ]a) Specific condition diagnosed after evaluation (eg, pulmonary embolism, aortic dissection) [ ]b) Unstable angina [ ]c) Continued suspicion of acute coronary syndrome with inability to complete needed cardiac evaluation (eg, patient clinically unable to undergo stress testing) [ ]d) Myocardial infarction (Contents from ANGINA and CHEST PAIN clinical indications for admission to inpatient care have been integrated in this form) The original [employer] [employer] [facility] content created by [employer] has been revised. The portions of the content which have been revised are identified through the use of italic text or in bold, and [employer] [facility] has neither reviewed nor approved the modified material. All other unmodified content is copyright [employer] [facility] [employer] Please see references footnoted in the original [employer] [facility] [employer] edition 2016 Admission Criteria Met: Yes
[2017-03-31] MEDS ORDERED: APRESOLINE IV PRN (05:37)
[2017-03-31] MEDS ORDERED: ZOFRAN IV PRN (05:38)
[2017-03-31] MEDS ORDERED: MILK OF MAGNESIA PO PRN (05:38)
[2017-03-31] MEDS ORDERED: DULCOLAX PR PRN (05:38)
[2017-03-31] MEDS ORDERED: MORPHINE IV PRN (05:38)
[2017-03-31] MEDS ORDERED: TYLENOL PO PRN (05:38)
[2017-03-31] MEDS ORDERED: LEVAQUIN PO SCH (05:43)
--- NOTE | 2017-03-31 05:44 | History and Physical Report ---
History of Present Illness Date of examination: 03/31/17 History of present illness: 62-year-old woman history of hypertension comes emergency room with, intensity of chest pain. Pain is in the left substernal area which she describes as a sharp, heavy sensation, constant for 15 minutes, intensity 7/10, no radiation and she cannot identify exacerbating or relieving factors. She stated that her visiting nurse was at the house when the chest pain started, her blood pressure was 230/102, she told her to come to the emergency room for further evaluation. Denies nausea vomiting, shortness breath, diaphoresis or palpitation Patient denies cough, abdominal pain, hematochezia, dysuria, frequency, focal weakness, dysarthria, fever chills, polydipsia polyuria, hot or cold intolerance , easy bruisability, or rash or bleeding from mucosal membrane, rhinorrhea, epistaxis, earache, tinnitus, blurry vision, eye discharge, anxiety, depression. Other review of systems negative PAST SURGICAL HISTORY: Exploratory laparoscopy, urethral repair SOCIAL HISTORY: Denies alcohol, tobacco, drugs FAMILY HISTORY: Hypertension Medications and Allergies Allergies Allergy/AdvReac Type Severity Reaction Status Date / Time No Known Allergies Allergy Verified 03/30/17 18:37 Home Medications Medication Instructions Recorded Confirmed Last Taken Type Ibuprofen/Diphenhydramine Cit [Eql 1 each PO QHS 03/05/17 03/05/17 Unknown History Ibuprofen Pm Caplet] traMADol [Ultram] 50 mg PO Q8H PRN #10 tablet 03/07/17 Unknown Rx Active Meds: Active Medications Acetaminophen (Tylenol) 650 mg PO Q4H PRN PRN Reason: Pain MILD(1-3)/Fever >100.5/S[place]TON Bisacodyl (Dulcolax) 10 mg MA QDAY PRN PRN Reason: Constipation unrelieved by MOM Enoxaparin Sodium (Lovenox) 40 mg SUB-Q QDAY DAREK Hydralazine HCl (Apresoline) 5 mg IV Q6HR PRN PRN Reason: Hypertension Magnesium Hydroxide (Milk Of Magnesia) 30 ml PO Q4H PRN PRN Reason: Constipation Morphine Sulfate (Morphine) 2 mg IV Q4H PRN PRN Reason: Pain, Moderate (4-6) Ondansetron HCl (Zofran) 4 mg IV Q8H PRN PRN Reason: N/V unrelieved by Reglan Exam - Physical Exam Narrative exam: Gen. appearance: Patient lying in bed, no apparent distress HEENT: Normocephalic, atraumatic, pupils equally round and reactive to light, extraocular movement intact, and no sclericterus,. No JVD or thyromegaly or nodule,neck supple, no carotid bruit ,mucous membranes moist, no exudate or erythema Heart: S1, S2, regular rate and rhythm Lungs: Clear to auscultation bilaterally, breathing comfortable Abdomen: Midline abdominal wound, no erythema or drainage, Positive bowel sounds , nontender, nondistended, no organomegaly Extremity: No edema, cyanosis, clubbing Skin: No rash, nodules, warm, dry Neuro: Oriented 3, cranial nerves II-12 intact, speech is fluent, motor and sensory intact - Constitutional Vitals: Temp Pulse Resp BP Pulse Ox 98.6 F 94 H 11 L 122/71 94 03/30/17 18:41 03/31/17 02:30 03/31/17 02:30 03/31/17 02:30 03/31/17 02:30 Results - Labs CBC & Chem 7: 03/30/17 19:04 03/30/17 19:04 Labs: Abnormal lab results 03/30/17 03/30/17 03/31/17 Range/Units 19:04 19:04 02:02 Hgb 9.5 L (10.1-14.3) gm/dl MCV 76 L (79-97) fl MCH 24 L (28-32) pg RDW 16.6 H (13.2-15.2) % Plt Count 456 H (140-440) K/mm3 Bartholomew % (Auto) 9.8 H (0.0-7.3) % Potassium 3.2 L (3.6-5.0) mmol/L AST 67 H (5-40) units/L Alkaline Phosphatase 131 H (35-129) units/L Albumin 3.0 L (3.9-5) g/dL Urine WBC (Auto) > 182.0 H (0.0-6.0) /HPF U Epithel Cells (Auto) 18.0 H (0-13.0) /HPF - Imaging and Cardiology EKG: image reviewed Chest x-ray: image reviewed Assessment and Plan Hypertensive urgency Chest pain due to #1,, rule out ACS UTI Abdominal wound Admit to medicine Check cardiac enzymes, liver profile and obtain a stress test Start pain medication, IV hydralazine, Levaquin, consult wound care Start DVT prophylaxis
[2017-03-31] MEDS ORDERED: LEVAQUIN 750MG/150ML 750 MG/150 ML BAG IV ONE (06:49)
[2017-03-31] MEDS ORDERED: LEVAQUIN ONE (07:11)
[2017-03-31] MEDS ORDERED: NACL 0.9% 500 ML IR ONE (08:02)
--- NOTE | 2017-03-31 09:11 | XRay Report ---
AP CHEST: Chest pain AP view of the chest demonstrates a normal mediastinal and cardiac contour with clear lungs and normal bony and soft tissue structures. No interval change compared with March 05, 2017. IMPRESSION: Normal AP chest.
[2017-03-31] MEDS ORDERED: LOVENOX SUB-Q SCH (10:00)
[2017-03-31] MEDS ORDERED: LEXISCAN IV ONE (10:50)
--- NOTE | 2017-03-31 11:01 | Event Note ---
Date: 03/31/17 Stress test reviewed No ischemia Normal LV function Nurse notified
[2017-03-31] MEDS ORDERED: ZOFRAN ONE (11:48)
[2017-03-31] MEDS ORDERED: MORPHINE ONE (11:48)
--- NOTE | 2017-03-31 11:49 | Discharge Summary ---
Providers - Providers Date of Admission: 03/31/17 05:38 Date of discharge: 03/31/17 Attending physician: SAUD RUBY 03/31/17 05:42 Consult to Wound/ET Nurse [CONS] Routine Reason For Exam: wound eval Primary care physician: HARRIS GREGORY Hospitalization Condition: Fair Hospital course: Discharge diagnosis: Hypertensive urgency Chest pain due to #1, ruled out ACS Abdominal wound, chronic UTI, Acute Disposition: DC-01 TO HOME OR SELFCARE Time spent for discharge: 35 minutes Core Measure Documentation - Palliative Care Palliative Care/ Comfort Measures: Not Applicable - Core Measures Any of the following diagnoses?: none Exam - Constitutional Vitals: Temp Pulse Resp BP Pulse Ox 98.6 F 92 H 18 121/82 98 03/30/17 18:41 03/31/17 08:00 03/31/17 08:00 03/31/17 08:00 03/31/17 08:00 General appearance: Present: no acute distress, well-nourished - EENT Eyes: Present: PERRL ENT: hearing intact, clear oral mucosa - Neck Neck: Present: supple, normal ROM - Respiratory Respiratory effort: normal Respiratory: bilateral: CTA - Cardiovascular Heart Sounds: Present: S1 & S2. Absent: rub, click - Extremities Extremities: pulses symmetrical, No edema Peripheral Pulses: within normal limits - Abdominal General gastrointestinal: Present: soft, non-tender, non-distended, normal bowel sounds, other (abdominal wound with wound dressing) - Integumentary Integumentary: Present: clear, warm, dry - Musculoskeletal Musculoskeletal: gait normal, strength equal bilaterally - Psychiatric Psychiatric: appropriate mood/affect, intact judgment & insight - Neurologic Neurologic: CNII-XII intact, moves all extremities Plan Activity: advance as tolerated Weight Bearing Status: Weight Bear as Tolerated Diet: low fat, low salt Wound: per wound nurse instructions Follow up with: HARRIS GREGORY MD [Primary Care Provider] - 3-5 Days Prescriptions: Amoxicillin/K Clav Tab [Augmentin 875 mg] 1 tab PO Q12HR #14 tab Carvedilol [Coreg] 3.125 mg PO BID #60 tablet HYDROcodone/APAP 10-325 [[place] 10-325 mg TAB] 1 each PO Q6H PRN #20 tablet PRN Reason: Pain, Moderate (4-6) Promethazine [Phenergan TAB] 25 mg PO Q6HR PRN #14 tablet PRN Reason: Nausea
[2017-03-31] MEDS ORDERED: NORCO 10/325 PO PRN (12:00)
[2017-03-31] MEDS ORDERED: NACL ONE ×2 (13:46→14:46)
--- NOTE | 2017-03-31 15:29 | Cat Scan Report ---
CT SCAN OF THE ABDOMEN WITH CONTRAST: HISTORY: Abdominal pain. TECHNIQUE: Helical CT in 1.25mm intervals following IV contrast. Sagittal and coronal reconstructions. FINDINGS: Compared to 03/05/17. There is a large midline abdominal wound indicating recent surgery. There is no evidence for abscess, free air or free fluid. No ventral wall defect. The gallbladder has been surgically removed. No biliary dilatation. The liver, pancreas, spleen, kidneys and adrenal glands are unremarkable. There is no evidence for bowel obstruction or focal inflammation. There are multiple suture lines in the mid to distal small bowel loops, correlate with history. There are mild diffuse calcifications in the aorta. No aneurysm. No adenopathy is appreciated. Heart size is normal. The visualized lung bases are clear. IMPRESSION: Midline abdominal wound. No acute intra-abdominal process is appreciated.
[2017-03-31 17:38] VITALS: BP 122/75
== END 2017-03-31 17:30 | disposition home or self-care (01) | DRG 305 ==
LOC: ED 18:19 → 4A 03-31 05:38
PROVIDERS: ADMIT Internal Medicine; ATTEND Internal Medicine
PROC: 4A02XM4 Measurement of Cardiac Total Activity, External Approach (ICD-10-PCS; principal; 2017-03-31)
DX: I16.0 Hypertensive urgency (principal); N39.0 Urinary tract infection, site not specified; R07.9 Chest pain, unspecified; I10 Essential (primary) hypertension; Z90.49 Acquired absence of other specified parts of digestive tract; Z87.891 Personal history of nicotine dependence; Z82.49 Family history of ischemic heart disease and other diseases of the circulatory system
CPT/HCPCS: 36415; 71010; 74160; 78452; 80053; 80061; 81001; 83690; 84484; 85025; 93005; 93010; 93017; 96372; 96374; 96375; A9502; J1956; J2270; J2405; J2765; J2785; Q9967